=== PATIENT | female | born 1980 | race Caucasian/White ===

== ENCOUNTER → 2017-12-09 15:25 | Outpatient (REF) | payer MEDICAID, SELFPAY ==
[2017-12-09 20:09] LABS: Amphetamine/Metha Screen,Urine Negative ng/mL (<1000); Barbiturates Screen,Urine Negative ng/mL (<200); Benzodiazepines Screen,Urine Positive ng/mL (<200); Cannabinoid Screen,Urine Positive ng/mL (<50); Cocaine Screen,Urine Negative ng/mL (<300); Methadone Screen,Urine Negative ng/mL (<300); Opiate Screen,Urine Negative ng/mL (<300); Phencyclidine Screen,Urine Negative ng/mL (<25)
== END ==
LOC: LAB 15:25
PROVIDERS: Visit Provider Emergency Medicine
DX: Z79.899 Other long term (current) drug therapy (principal); N39.0 Urinary tract infection, site not specified
CPT/HCPCS: 80305; 87077; 87086

== ENCOUNTER → 2018-05-30 13:55 | Outpatient (CLI) | payer MEDICAID, SELFPAY | PROVIDERS: Visit Provider Nurse Practitioner Family | DX: R82.998 Other abnormal findings in urine (principal) | CPT/HCPCS: 87086 ==

== ENCOUNTER → 2018-08-12 08:26 | Outpatient (CLI) | payer MEDICAID, SELFPAY ==
--- NOTE | 2018-08-12 08:31 | XR_ITS ---
EXAM: XR thoracic spine 3V HISTORY: Posttraumatic pain ITS.REASON: pain Comparison: 01/04/2016 FINDINGS: Normal alignment. No fracture or dislocation. Mild multilevel degenerative disc disease is present in the mid and lower thoracic spine. No lytic or blastic change IMPRESSION: Degenerative change, no acute finding
--- NOTE | 2018-08-12 08:31 | XR_ITS ---
EXAM: XR lumbar spine min 4V HISTORY: Low back pain ITS.REASON: pain ORDERING PHYSICIAN: Anna Lopes PATIENT AGE: 38 years COMPARISON: None FINDINGS: Normal alignment. No fracture or dislocation. No lytic or blastic change. No significant degenerative change. The disc spaces are preserved. There are small endplate osteophytes in the lower thoracic spine and lumbar spine. The disc spaces are well-preserved. The SI joints have an unremarkable appearance. There are bilateral tubal ligation clips. IMPRESSION: Minimal degenerative change, no acute finding
== END ==
PROVIDERS: PCP Emergency Medicine; Visit Provider Nurse Practitioner Family
DX: M54.6 Pain in thoracic spine (principal)
CPT/HCPCS: 72072; 72110

== ENCOUNTER 2021-02-05 13:03 | Emergency (ER) | payer MEDICAID, SELFPAY ==
[2021-02-05 13:05] VITALS: BP 130/82; PULSE 72; RESP 21; TEMP 37.1; O2SAT 100; BMI 31.7
[2021-02-05 13:33] LABS: Apearance,Urine Clear (Clear); Bilirubin,Urine Negative (Negative); Blood, Urine Negative (Negative); Color,Urine Yellow (Yellow); Glucose,Urine (UA) Negative (Negative); Ketones,Urine Negative (Negative); PH,Urine 6.5 (5.0-8.5); Protein,Urine Negative (Negative); Specific Gravity, Urine 1.025 (1.005-1.030); UTC Leukocyte Esterase,Urine Negative (Negative); UTC Nitrate,Urine Negative (Negative); Urobilinogen,Urine 0.2 EU/dl (0.2)
--- NOTE | 2021-02-05 13:46 | HMH.EDUTC ---
[facility] [place] Disposition Clinical Impression: Burning with urination Disposition: Home, Self-Care Condition on Discharge: Good Instructions: DI for Chronic Pain -- Adult, Diclofenac Topical (arthritis pain), Phenazopyridine Additional Instructions: Make sure to drink plenty of water to help with burning during urination Follow up with your Family Doctor if no improvement or any worsening of symptoms return if needed straight to ER if any life threatening symptoms Prescriptions: Diclofenac Sodium [Diclofenac Sod 100gm Topical Gel] 1 applicatio TP Q6HP PRN #200 gm PRN Reason: Moderate Pain Transmission Status: Pending to [facility] Clotrimazole [Lotrimin 1% Cream 15gm tube] 1 applicatio TP BID #30 gm Transmission Status: Pending to [facility] Phenazopyridine HCl [Pyridium 200mg Tablet] 200 pow PO TID #6 tab Transmission Status: Pending to [facility] Referrals: Provider,Referral, MD [Primary Care Provider] - As needed Time of Disposition: 13:56 Medical Decision Making - Edward Inquiry Pt receiving controlled substance: No Edward was queried for this patient: No Vital Signs: 02/05/21 13:05 Temperature 98.8 F Temperature Source Oral Pulse Rate [Right Brachial] 72 Respiratory Rate 21 Blood Pressure [Right Arm] 130/82 Blood Pressure Mean [Right Arm] 98 Blood Pressure Source [Right Arm] Automatic Cuff Blood Pressure Position [Right Arm] Sitting 02 Sat by Pulse Oximetry 100 Oxygen Delivery Method Room Air - Lab Data Lab results reviewed: Yes: I reviewed the patient's lab results. Lab Results 02/05/21 13:27: Urine Color Yellow, Urine Appearance Clear, Urine pH 6.5, Ur Specific [place] 1.025, Urine Protein Negative, Urine Glucose (UA) Negative, Urine Ketones Negative, Urine Blood Negative, Urine Nitrate Negative, Urine Bilirubin Negative, Urine Urobilinogen 0.2, Ur Leukocyte Esterase Negative Medical Decision Narrative: Patient states that she is prescribed Diclofenac gel and Clotriamazole by her PCP and she is out wanting to see if she can get a refill until she is able to get in to see them [facility] [place] HPI - General Stated complaint: pOSSIBLE uti Time Seen by Provider: 02/05/21 13:46 Mode of Arrival: Ambulatory Source of Information: Patient Limitations: No Limitations Description of Symptoms (Recalled from Triage Doc. by RN): PATIENT C/O BLADDER SPASMS AND FREQUENT URINATION X 1 WEEK HEENT Symptoms (Recalled from RN notes): No Resp Symptoms (Recalled from RN notes): No Skin Symptoms (Recalled from RN notes): No MS Symptoms (Recalled from RN notes): No Functional Status (Recalled from RN notes): WNL - History of Present Illness Provider Complaint: Patient states that she feels like she may be having bladder spasms States that they have give her medication for them before and having some burning when she urinates on and off and wanted checked for UTI States that she also has to use fungal cream for her feet and diclofenac for her back and wants to see if she can get a reflill on them until she sees her PCP - Related Data Home Medications Medication Instructions Recorded Confirmed buprenorphine 8 mg-naloxone 2 mg SUBLINGUAL 7 Days #14 tab 08/04/18 08/04/18 sublingual tablet Previous Rx's Medication Instructions Recorded Ibuprofen [Ibuprofen 600mg 600 mg PO Q6HP PRN #30 tab 07/15/18 Tablet] lidocaine HCl 4 % topical cream 1 applic TOPICAL BID PRN #76.5 g 08/04/18 omeprazole 20 mg capsule,delayed 20 mg PO DAILY #30 cap 08/04/18 release Diclofenac Sodium [Voltaren 100gm 1 applicatio TP QID #1 tube 10/07/18 Topical Gel] Naproxen 500 mg PO BIDP PRN #30 tab 10/07/18 Clotrimazole [Lotrimin 1% Cream 1 applicatio TP BID #30 gm 02/05/21 15gm tube] Diclofenac Sodium [Diclofenac Sod 1 applicatio TP Q6HP PRN #200 gm 02/05/21 100gm Topical Gel] Phenazopyridine HCl [Pyridium 200 pow PO TID #6 tab 02/05/21 200mg Tablet] Allergies Allergy/AdvReac Type Severity
[2021-02-05 13:56] VITALS: BP 130/82; PULSE 72; RESP 21; TEMP 37.1; O2SAT 100
== END 2021-02-05 14:00 | disposition home or self-care (01) ==
PROVIDERS: Emergency Provider Nurse Practitioner
DX: N32.89 Other specified disorders of bladder (principal); R30.0 Dysuria; R35.0 Frequency of micturition
CPT/HCPCS: 81003; 99202; G0463